=== PATIENT | female | born 1955 | race Caucasian/White ===

== ENCOUNTER 2016-10-09 13:57 | Emergency (ER) | payer OTHER ==
[~2016-10-09] VITALS: Ht 167.6 cm; Wt 73.9 kg
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
--- NOTE | 2016-10-09 16:46 | CT SCAN REPORT ---
EXAMINATION: CT HEAD WITHOUT CONTRAST CT CERVICAL SPINE WITHOUT CONTRAST CLINICAL INFORMATION: 61-year-old female, status post head injury, also complaining of neck pain. COMPARISON: None TECHNIQUE: Noncontrast CT scan of the head and cervical spine, using standard protocol. Multiplanar reconstructed images are obtained. Multiplanar reconstructed images are also obtained. FINDINGS: CT OF THE HEAD: The brain parenchyma, ventricles, cisterns and sulci appear unremarkable. Specifically, no evidence of intra-axial mass, mass effect, extra-axial fluid collection, midline shift, acute intraparenchymal hemorrhage and/or acute infarction present. Both orbital globes, extraocular muscles, optic nerves appear bilaterally symmetric and are unremarkable. The bilateral mastoid air cells appear unremarkable. CT OF THE CERVICAL SPINE: There is nonspecific straightening of the upper cervical spine and reversal of lower cervical lordosis present. The height of the cervical vertebrae is well maintained. Postsurgical changes of anterior cervical spine fusion are noted with intact hardware, and evidence of partial fusion of the left facet joint and partial subluxation of the right facet joint at C5-C6 (see the miranda images). Otherwise, the posterior appendages appear intact and/or unremarkable. Mild degenerative spondylosis-related changes are noted at C4-C5 and C6-C7. The prespinal soft tissues appear unremarkable. The visualized soft tissues of the neck on this nonenhanced study appears unremarkable. Both lung apices are clear. IMPRESSION: 1. No acute intracranial pathology. 2. Postsurgical changes of anterior cervical spine fusion with intact hardware are noted at C5-C6. Partial fusion of the left facet joint, and partial subluxation of the right facet joint are also noted at C5-C6, likely chronic. 3. Mild degenerative spondylosis at C4-C5 and C6-C7.
[2016-10-09 17:04] VITALS: BP 124/82
== END 2016-10-09 17:05 ==
LOC: ERH 13:57
DX: S09.90XA Unspecified injury of head, initial encounter (principal); S06.0X1A Concussion with loss of consciousness of 30 minutes or less, initial encounter; W20.8XXA Other cause of strike by thrown, projected or falling object, initial encounter